=== PATIENT | female | born 1990 | race Caucasian/White ===

== ENCOUNTER → 2016-12-09 | Outpatient (CLI) | payer OTHER ==
[~2016-12-09] MED LIST: GADAVIST IV PRN
--- NOTE | 2016-12-09 20:24 | DIAGNOSTIC IMAGING REPORT ---
Brain and pituitary MRI WITH AND WITHOUT CONTRAST HISTORY: Irregular menstrual cycles. Elevated prolactin. TECHNIQUE: Multiplanar multisequence MRI of the brain and pituitary fossa were performed both before and after the intravenous administration of contrast. Dynamic postcontrast imaging of the pituitary fossa was obtained. COMPARISON STUDY: None. FINDINGS: There are no areas of restricted diffusion to suggest acute infarction. The midline structures are intact. The paranasal sinuses are clear. The mastoid air cells are clear. The ventricles and sulci are within normal limits for age. There is no mass, hematoma, midline shift. The major vascular flow-voids at the skull base are well maintained. Postcontrast sequences show no areas of abnormal enhancement. The pituitary gland is normal in size and demonstrates a normal posterior pituitary bright spot. There is a 5 mm hypoenhancing focus within the left inferior pituitary gland best seen on image 27 of series 10. The pituitary stalk is normal in course and caliber. IMPRESSION: A 5 mm hypoenhancing focus within the left inferior pituitary gland. This likely represents a microadenoma. Electronically signed by: Amilcar Godinez M.D. 12/10/2016 4:15 PM Dictated Date/Time: 12/09/2016 8:11 PM
== END | disposition home or self-care (01) ==
LOC: C.MRI 17:37
PROVIDERS: ATTEND Physician Assistant Medical
DX: E22.1 Hyperprolactinemia (principal)

== ENCOUNTER → 2017-12-05 | Outpatient (CLI) | payer OTHER ==
[~2017-12-05] MED LIST changes: +BROM2.5T3 PO; +CHOL20007 PO; +LEVO50TA6 PO; +PRENTAB26 PO
--- NOTE | 2017-12-05 21:23 | DIAGNOSTIC IMAGING REPORT ---
MRI OF THE BRAIN AND PITUITARY GLAND WITH AND WITHOUT CONTRAST CLINICAL HISTORY: Pituitary microadenoma. COMPARISON STUDY: MRI of the brain and pituitary gland December 09, 2016. TECHNIQUE: Utilizing 1.5 Rayne magnet, multiplanar, multi echo imaging of the brain and pituitary gland was performed pre and postcontrast administration with injection of 6 cc of Gadavist IV. Postcontrast imaging through the pituitary gland was performed utilizing dynamic enhancement. FINDINGS: There are no foci of restricted diffusion. No acute intracranial hemorrhage, midline shift or mass effect is present. Brain volume is normal. Ventricular system is normal. Basilar cisterns are patent. No areas of parenchymal signal abnormality are identified. Calvarial signal is unchanged. Orbits and sinuses are unremarkable. Optic chiasm is unremarkable. Infundibulum is normal. Mild enlargement of the pituitary gland, measuring 7 mm in craniocaudal extent is unchanged since MRI of December 09, 2016. A 4 mm hypoenhancing focus within the left inferior aspect of the gland shown on image 4 of 10 of the dynamic postcontrast sequence is either unchanged or slightly decreased in size since exam of December 09, 2016. No additional pituitary lesions are identified. IMPRESSION: 4 mm hypoenhancing focus within the left inferior aspect of the pituitary gland which is either unchanged or slightly decreased in size since exam of December 09, 2016. This is highly suggestive of a pituitary microadenoma. Otherwise, unremarkable MRI of the brain. Electronically signed by: Morales Rojas M.D. 12/05/2017 9:22 PM Dictated Date/Time: 12/05/2017 9:14 PM
== END | disposition home or self-care (01) ==
LOC: C.MRI 18:29
PROVIDERS: ATTEND Internal Medicine Endocrinology, Diabetes & Metabolism
DX: D35.2 Benign neoplasm of pituitary gland (principal)